=== PATIENT | male | born 1985 | race Caucasian/White ===

== ENCOUNTER 2016-04-02 14:48 | Emergency (ER) | payer MEDICAID ==
[~2016-04-02] VITALS: Ht 175.3 cm; Wt 62.0 kg
[~2016-04-02 14:48] MED LIST: ERYT1OIN6 RIGHT EYE
[2016-04-02 14:52] VITALS: Ht 175.3 cm; Wt 62.0 kg
[2016-04-02] MEDS ORDERED: KETOROLAC 60 MG INJ IM STA (16:26)
[2016-04-02] MEDS ORDERED: ONDANSETRON (ODT) 4 MG TAB ODT STA (16:26)
[2016-04-02] MEDS ORDERED: IBUP-1542 PO (17:29)
[2016-04-02] MEDS ORDERED: ONDA4TAB14 PO (17:29)
[2016-04-02 17:33] VITALS: TEMP 98.1
--- NOTE | 2016-04-02 19:58 | ERD ---
ER Documentation Chief Complaint Date/Time DATE: 04/02/16 TIME: 19:58 Chief Complaint HEADACHE AND DIZZINESS X 2 WEEKS HPI 10-year-old male with no significant past medical history presents the ED complaining of a headache that started 15 days ago. States that it feels pressure-like and is pulsating in the temporal region and radiates to the top of the head. Denies any head or neck injuries. Denies any loss of consciousness. Rates the pain a 6 out of 10. States that he has not tried taking any medications. Denies any fever, chills, cough, rhinorrhea, chest pain , shortness of breath, abdominal pain, nausea, vomiting, neck stiffness or neck pain, eye pain, blurred vision, dizziness, photophobia, phonophobia. ROS All systems reviewed and are negative except as per history of present illness. Medications Home Meds Active Scripts Ondansetron (Ondansetron Odt) 4 Mg Tab.rapdis, 4 MG PO Q6H Y for NAUSEA AND/OR VOMITING, #10 TAB Prov:EMMA PHELAN PA-C 04/02/16 Ibuprofen* (Motrin*) 600 Mg Tab, 600 MG PO Q6, #30 TAB Prov:EMMA PHELAN PA-C 04/02/16 Erythromycin (Erythromycin Opth) 3.5 Gm Oint..gm., 1 APPLIC RIGHT EYE QID for 7 Days, EA Prov:MICKEY JACOBSON 10/05/15 Allergies Allergies: Coded Allergies: No Known Allergy (Unverified , 07/26/14) PMhx/Soc History of Surgery: No Anesthesia Reaction: No Hx Neurological Disorder: No Hx Respiratory Disorders: No Hx Cardiac Disorders: No Hx Psychiatric Problems: No Hx Miscellaneous Medical Probl: No Hx Alcohol Use: No Hx Substance Use: No Hx Tobacco Use: No Physical Exam Vitals Vital Signs Date Time Temp Pulse Resp B/P Pulse Ox O2 Delivery O2 Flow Rate FiO2 04/02/16 17:33 98.1 04/02/16 14:52 98.2 58 16 117/71 99 Physical Exam Const: [id number]-[id number], well-nourished. In no acute distress. Head: Atraumatic, normocephalic Eyes: Normal Conjunctiva without injection. No purulent discharge. PERRLA. EOMI ENT: Normal external ear. Ear canal without erythema. Tympanic membrane pearly perea without effusion or bulging. Nasal canal clear with normal turbinates. Moist oropharynx without tonsillar exudates. Non-erythematous pharynx. Uvula midline. No drooling. No trismus. Neck: No cervical midline tenderness. Full range of motion. No meningismus. No cervical lymphadenopathy. No JVD. Resp: Clear to auscultation bilaterally. No wheezing, rhonchi, rales, or crackles. No accessory muscle use. No retractions. Cardio: Regular rate and rhythm. No murmurs, rubs or gallops. Abd: Soft, non tender, non distended. Normal bowel sounds. No palpable masses. No rebound tenderness. No guarding. Negative McBurney's Point. Negative Quigley's Sign. Skin: Normal skin turgor. No petechiae or rashes Back: No midline tenderness. No CVA tenderness. Ext: No cyanosis, or edema. Distal pulses intact bilaterally. Neur: Awake and alert. Normal gait. Normal coordination. Cranial Nerves II- VII intact. Normal finger to nose. Muscle strength 5/5. Sensation intact. Psych: Normal Mood and Affect Results 24 hrs Current Medications Medications (Trade) Dose Ordered Sig/Tony Route PRN Reason Start Time Stop Time Status Last Admin Dose Admin Ketorolac Tromethamine (Toradol) 60 mg ONCE STAT IM 04/02/16 16:26 04/02/16 16:31 DC 04/02/16 16:36 Ondansetron HCl (Zofran Odt) 4 mg ONCE STAT ODT 04/02/16 16:26 04/02/16 16:31 DC 04/02/16 16:35 Procedures/MDM 30-year-old male with no significant past medical history presents the ED complaining of headache that started 15 days ago. Patient is afebrile nontoxic appearing. Patient has normal vital signs. Patient was treated with Zofran and Toradol 60 mg IM with improvement of his pain. A CT of the brain without contrast discussed with the patient at this time. We both agreed that it is not necessary as patient symptoms have improved. Patient has not tried any medications and had improvement with his treatment here in the ED. Patient likely has a migraine versus tension headache. There is low suspicion for any intracranial bleed, subarachnoid hemorrhage, meningitis, TIA, stroke, epidural hematoma, subdural hematoma, or other emergent conditions. Discharge medications: Ibuprofen, Zofran Follow up with primary care physician in 1-2 days. Instructed patient to return to the ED sooner for any worsening symptoms. Patient's questions were answered. Patient understood and agreed with discharge plan. Patient discharged stable. Departure Diagnosis: Primary Impression: Headache Headache type: unspecified Headache chronicity pattern: unspecified pattern Intractability: not intractable Qualified Code: R51 - Nonintractable headache, unspecified chronicity pattern, unspecified headache type Condition: Stable Patient Instructions: Headache, Unspecified [facility] Usted se olivia hecho un examen mdico de control que le indica que no est en giovanni condicin que requiera tratamiento urgente en el Departamento de Emergencia. Un estudio ms profundo y el tratamiento de arriaga condicin pueden esperar sin ningn riesgo hasta que usted sea atendida/o en el consultorio de arriaga mdico o giovanni cl al. Es responsabilidad suya arreglar giovanni tuan para el seguimiento del bonita. MANEJO DE CONDICIONES NO URGENTES EN EL FUTURO 1) Si usted tiene un mdico de atencin primaria: Usted debera llamar a arriaga mdico de atencin primaria antes de venir al departamento de emergencia. Despus de las horas de consultorio, arriaga doctor o arriaga asociado/a est disponible por telfono. El mdico o enfermero de guanako en el servicio telefnico puede asesorarle por florentin medio para atender el problema, o bonita contrario se puede programar giovanni tuan. 2) Si usted no tiene un mdico de atencin primaria: Llame al mdico o clnica de referencia que aparece abajo alma las horas de consultorio para hacer giovanni tuan para que le vean. CLINICAS: [facility] [phone] [address] [facility] [phone] [place] [facility] [phone] [facility] [phone] [place] [id number] [phone] [facility]. [phone] [address] [facility]. [facility] () Usted se olivia hecho un examen mdico de control que le indica que no est en giovanni condicin que requiera tratamiento urgente en el Departamento de Emergencia. Un estudio ms profundo y el tratamiento de arriaga condicin pueden esperar sin ningn riesgo hasta que usted sea atendida/o en el consultorio de arriaga mdico o giovanni cl al. Es responsabilidad suya arreglar giovanni tuan para el seguimiento del bonita. MANEJO DE CONDICIONES NO URGENTES EN EL FUTURO 1) Si usted tiene un mdico de atencin primaria: Usted debera llamar a arriaga mdico de atencin primaria antes de venir al departamento de emergencia. Despus de las horas de consultorio, arriaga doctor o arriaga asociado/a est disponible por telfono. El mdico o enfermero de guanako en el servicio telefnico puede asesorarle por florentin medio para atender el problema, o bonita contrario se puede programar giovanni tuan. 2) Si usted no tiene un mdico de atencin primaria: Llame al mdico o condado institucions de referencia que aparece abajo alma las horas de consultorio para hacer giovanni tuan para que le vean. SI USTED NO PUEDE PAGAR PARA LIBRA UN MEDICO puede ir a: [facility] [address] [place] [address] [facility] [address] [place] [address] [facility] [address] [place] [address] PARA [facility] [address] [place] [address] Additional Instructions: Visite a arriaga mdico maana para un EXAMEN.Regrese a estas instalaciones si no se mejora kita esperbamos o kita le dijimos. EMMA PHELAN PA-C Apr 02, 2016 19:58
== END 2016-04-02 17:36 | disposition home or self-care (01) ==
LOC: FTE 14:48
DX: R51 Headache (principal)
CPT/HCPCS: 96372; J1885; Z7502; Z7610

== ENCOUNTER 2017-04-30 09:58 | Emergency (ER) | END 2017-04-30 16:43 | disposition home or self-care (01) ==